=== PATIENT | female | born 1990 | race Two or more races ===

== ENCOUNTER 2022-02-09 04:09 | Inpatient (IN) | payer OTHER ==
[~2022-02-09] VITALS: Ht 170.2 cm; Wt 76.7 kg
[2022-02-09] MEDS ORDERED: PRENATAL TABLE1 EAC1 PO (04:57)
== END 2022-02-11 12:43 | disposition home or self-care (01) | DRG 807 ==
LOC: LDR 04:09 → OB/GYN 14:48
PROVIDERS: ADMIT Specialist; ATTEND Specialist
PROC: 10E0XZZ Delivery of Products of Conception, External Approach (ICD-10-PCS; principal; 2022-02-09)
PROC: 0W8NXZZ Division of Female Perineum, External Approach (ICD-10-PCS; 2022-02-09)
PROC: 4A1HXCZ Monitoring of Products of Conception, Cardiac Rate, External Approach (ICD-10-PCS; 2022-02-09)
DX: O80 Encounter for full-term uncomplicated delivery (principal); Z37.0 Single live birth; Z3A.37 37 weeks gestation of pregnancy; Z20.822 Contact with and (suspected) exposure to COVID-19